=== PATIENT | female | born 1960 | race Caucasian/White ===

== ENCOUNTER 2021-12-31 08:37 | Outpatient (CLI) | payer BC ==
[2021-12-31] MEDS ORDERED: iohexol 300mg/ml 100ml inj. ONE (08:53)
== END 2021-12-31 23:59 | disposition home or self-care (01) ==
LOC: 64 CT 08:37
PROVIDERS: ATTEND Family Medicine
DX: R16.0 Hepatomegaly, not elsewhere classified (principal); R91.8 Other nonspecific abnormal finding of lung field; R18.8 Other ascites; R59.0 Localized enlarged lymph nodes; M89.8X8 Other specified disorders of bone, other site; R63.4 Abnormal weight loss; R79.89 Other specified abnormal findings of blood chemistry; R06.02 Shortness of breath
CPT/HCPCS: 71046; 74178; Q9967